=== PATIENT | female | born 1955 | race Caucasian/White ===

== ENCOUNTER 2017-05-13 15:08 | Emergency (ER) | payer OTHER ==
[~2017-05-13] VITALS: Ht 157.5 cm; Wt 66.8 kg
[~2017-05-13 15:08] MED LIST: ALBU17I INH; CLIN1CAP6 PO; MONT10TA2 PO; SYNT200T PO
[2017-05-13 15:20] VITALS: BP 128/70; TEMP 97.9; O2SAT 96
[2017-05-13] MEDS ORDERED: CLAR10CA3 PO (15:47)
[2017-05-13] MEDS ORDERED: ASPI-516 CHEW (15:47)
[2017-05-13] MEDS ORDERED: LEVO200T4 PO (15:47)
--- NOTE | 2017-05-13 16:06 | PD ---
HPI Chief Complaint: Musculoskeletal Complaint Time Seen by Provider: 15:55 Travel History International Travel<30 days: No Contact w/Intl Traveler<30days: No Traveled to known affect area: No History of Present Illness HPI Examined in the presence of female nurse. 62 year old female here with right lower rib cage pain. She reports that she tripped and fell 5 days ago and hit her rib cage against a washing machine. Pain is sharp, worse with inspiration and movement. She has been taking ibuprofen and Tylenol but the pain persists which prompted evaluation. Denies hemoptysis, abdominal pain, nausea or vomiting, shortness of breath. No other complaints. PFSH Past Medical History Asthma: Yes Blood Disorders: No Cancer: Yes (THYROID) Cardiovascular Problems: No COPD: No Diabetes: No Diminished Hearing: No Endocrine: Yes Gastrointestinal Disorders: Yes (GERD) Genitourinary: No Immune Disorder: No Musculoskeletal: No Neurologic: No Psychiatric: No Reproductive: No Respiratory: Yes Sleep Apnea: No Thyroid Disease: Yes (HYPO) ?: Not Menopausal: Yes : 4 Para: 4 Tubal Ligation: Yes Past Surgical History Other Surgery: Yes (THYROIDECTOMY) Social History Alcohol Use: No Tobacco Use: No Substance Use: No Allergies-Medications (Allergen,Severity, Reaction): Coded Allergies: penicillin G (Unverified Allergy, Severe, HIVES,SWELLING,RASH & ITCHING, 05/13/17) Reported Meds & Prescriptions Reported Meds & Active Scripts Active Reported Claritin (Loratadine) 10 Mg Cap 10 Mg PO DAILY Aspirin 81 Mg Chew 81 Mg CHEW DAILY Levothyroxine (Levothyroxine Sodium) 200 Mcg Tab 200 Mcg PO DAILY Review of Systems Except as stated in HPI: all other systems reviewed are Neg Physical Exam Narrative GENERAL: Well-developed well-nourished female in no acute distress SKIN: Warm and dry. HEAD: Atraumatic. Normocephalic. EYES: Pupils equal and round. No scleral icterus. No injection or drainage. ENT: No nasal bleeding or discharge. Mucous membranes pink and moist. NECK: Trachea midline. No JVD. CARDIOVASCULAR: Regular rate and rhythm. No murmur appreciated. RESPIRATORY: No accessory muscle use. Clear to auscultation. Breath sounds equal bilaterally. GASTROINTESTINAL: Abdomen soft, non-tender, nondistended. Hepatic and splenic margins not palpable. MUSCULOSKELETAL: No obvious deformities. Tender to palpation anterior right lower rib cage inferior to the breast. No bruising or soft tissue swelling NEUROLOGICAL: Awake and alert. No obvious cranial nerve deficits. Motor grossly within normal limits. Normal speech. Data Data Last Documented VS Vital Signs Date Time Temp Pulse Resp B/P (MAP) Pulse Ox O2 Delivery O2 Flow Rate FiO2 05/13/17 15:20 97.9 75 18 128/70 (89) 96 Orders Orders Ribs, Uni (W/Exp Cxr-Min 3vw) (05/13/17 ) Ketorolac Inj (Toradol Inj) (05/13/17 17:00) Ed Discharge Order (05/13/17 16:51) [facility] Medical Decision Making Medical Screen Exam Complete: Yes Emergency Medical Condition: Yes Medical Record Reviewed: Yes Differential Diagnosis Rib contusion, abrasion, fracture, pneumothorax, hemothorax Narrative Course Rib x-ray reveals no acute malaise. She appears to have a contusion her chest wall. She is being discharged with Lidoderm patches. Diagnosis Primary Impression: Chest wall contusion Qualified Codes: S20.211A - Contusion of right front wall of thorax, initial encounter Additional Instructions: [id number] Tylenol or Motrin for pain. Lidoderm patches as needed. Follow-up with primary care physician as needed and return for any emergent medical conditions. Med/Other Pt SpecificInfo: Prescription(s) given Scripts Lidocaine Patch 12 HR (Lidocaine Patch 12 HR) 5 % Patch 1 PATCH TOPICAL DAILY Y for PAIN, #1 BOX 1 Refill Remove patch after 12 hours Prov: May Shafer MD 05/13/17 Disposition: 01 DISCHARGE HOME Condition: Stable Herbert Wilson May 13, 2017 16:06
--- NOTE | 2017-05-13 16:48 | RADRPT ---
EXAM DATE/TIME: 05/13/2017 16:14 [place] COMPARISON: No previous studies available for comparison. INDICATIONS : Right anterior chest and rib pain for 5 days. Patient fell into her washing machine 5 days ago. MEDICAL HISTORY : None. SURGICAL HISTORY : None. ENCOUNTER: Initial ACUITY: 4 - 6 days PAIN SCORE: 7/10 LOCATION: Right anterior chest. FINDINGS: 5 views of the chest and right ribs demonstrate no fracture or acute rib abnormality. There is no pne umothorax. S-shaped thoracolumbar scoliosis is present. CONCLUSION: No rib fracture or acute abnormality is identified. Remy Manning MD on May 13, 2017 at 16:45 Board Certified Radiologist. This report was verified electronically.
[2017-05-13] MEDS ORDERED: LIDO1PAD52 TOPICAL (16:52)
[2017-05-13] MEDS ORDERED: KETOROLAC TROMETHAMINE 60 MG/2 ML (IM) VIAL IM ONE (17:00)
== END 2017-05-13 17:07 | disposition home or self-care (01) ==
LOC: PHEFT 15:08
DX: S20.211A Contusion of right front wall of thorax, initial encounter (principal); W01.198A Fall on same level from slipping, tripping and stumbling with subsequent striking against other object, initial encounter
CPT/HCPCS: 71101; 96372; 99284; J1885

== ENCOUNTER → 2017-05-29 | Outpatient (CLI) | payer OTHER ==
[~2017-05-29] MED LIST changes: -ALBU17I INH; +ASPI-516 CHEW; +CLAR10CA3 PO; -CLIN1CAP6 PO; +LEVO200T4 PO; +LIDO1PAD52 TOPICAL; -MONT10TA2 PO; -SYNT200T PO
[2017-05-29 12:43] LABS: AUTOMATED NEUTROPHIL # 4.1 TH/MM3 (1.8-7.7); BASOPHIL # 0.1 TH/MM3 (0-0.2); EOSINOPHIL # 0.4 TH/MM3 (0-0.4); EOSINOPHIL % 6.5 % (0.0-4.0); HEMATOCRIT 37.1 % (35.0-46.0); HEMO FLAGS DIFF FINAL; LYMPH % 19.5 % (9.0-44.0); LYMPHOCYTE # 1.3 TH/MM3 (1.0-4.8); MEAN CELL VOLUME 87.5 FL (80.0-100.0); MEAN CORPUSCULAR HEMOGLOBIN 30.5 PG (27.0-34.0); MEAN CORPUSCULAR HGB CONC 34.9 % (32.0-36.0); MONO % 12.6 % (0.0-8.0); NEUT % 60.4 % (16.0-70.0); PLATELET COUNT 249 TH/MM3 (150-450); RED BLOOD COUNT 4.25 MIL/MM3 (4.00-5.30); RED CELL DISTRIBUTION WIDTH 13.1 % (11.6-17.2); WHITE BLOOD COUNT 6.8 TH/MM3 (4.0-11.0)
[2017-05-29 13:06] LABS: ANION GAP 5 MEQ/L (5-15); AST (GOT) 13 U/L (15-37); BICARBONATE 27.4 MEQ/L (21.0-32.0); BLOOD UREA NITROGEN 11 MG/DL (7-18); CHLORIDE 109 MEQ/L (98-107); GLOMERULAR FILTRATION RATE 83 ML/MIN (>89); GLUCOSE,FASTING 91 MG/DL (74-99); POTASSIUM 3.9 MEQ/L (3.5-5.1); SODIUM (NA) 141 MEQ/L (136-145)
[2017-05-29 13:16] LABS: ALKALINE PHOSPHATASE 89 U/L (45-117); ALT (GPT) 20 U/L (10-53); FREE T4 0.97 NG/DL (0.76-1.46); TOTAL BILIRUBIN ADULT 0.7 MG/DL (0.2-1.0)
[2017-05-29 13:42] LABS: BACTERIA, URINE RARE /hpf; BLOOD, URINE NEG (NEG); GLUCOSE,URINE NEG (NEG); KETONE, URINE NEG (NEG); NITRITE,URINE NEG (NEG); PH, URINE 7.5 (5.0-8.5); SQUAMOUS EPITHELIAL CELL URINE 4 /hpf (0-5); URINE COLOR YELLOW (YELLW/STRAW)
== END ==
LOC: CLAB 12:14
PROVIDERS: ATTEND Internal Medicine
DX: J45.909 Unspecified asthma, uncomplicated (principal); E03.9 Hypothyroidism, unspecified
CPT/HCPCS: 36415; 80053; 81001; 84439; 84443; 85025